=== PATIENT | female | born 1980 | race Caucasian/White ===

== ENCOUNTER 2022-09-05 09:37 | Emergency (ER) | payer MEDICAID ==
[~2022-09-05] VITALS: Ht 160 cm; Wt 66.7 kg
[2022-09-05 09:47] VITALS: BP 110/70
--- NOTE | 2022-09-05 09:58 | NUR ---
PT AMBULATED TO ER BED 8
[2022-09-05] MEDS ORDERED: MORPHINE SULFATE 4 MG/ML SYR IVP ONE (10:25)
[2022-09-05] MEDS ORDERED: NACL 0.9% 1,000 ML IV ONE (10:25)
[2022-09-05] MEDS ORDERED: ONDANSETRON 4 MG/2 ML VIAL IVP ONE (10:25)
--- NOTE | 2022-09-05 10:25 | NUR ---
Dr. Oviedo evaluating patient at bedside.
[2022-09-05 10:40] LABS: APPEARANCE,URINE CLEAR (CLEAR); BILIRUBIN,URINE NEGATIVE (NEGATIVE); BLOOD, URINE 1+ (NEGATIVE); COLOR,URINE YELLOW (YELLOW); LEUKOCYTE ESTERASE ,URINE NEGATIVE (NEGATIVE); NITRITE, URINE POSITIVE (NEGATIVE); PH,URINE 5.5 (5.0-9.0); UGLUCOSE NEGATIVE (NEGATIVE)
--- NOTE | 2022-09-05 10:50 | NUR ---
Ultrasound at bedside.
[2022-09-05 10:53] LABS: BASOPHILS # (AUTO) 0.1 K/uL (0.00-0.22); EOSINOPHILS # (AUTO) 0.2 K/uL (0-0.4); EOSINOPHILS % (AUTO) 2.5 % (0.0-4.0); HEMATOCRIT 40.5 % (36-48); HEMOGLOBIN 13.5 g/dL (12.0-16.0); LYMPHOCYTES # (AUTO) 2.6 K/uL (2.5-16.5); LYMPHOCYTES % (AUTO) 32.5 % (20.5-51.1); MEAN CORPUSCULAR HEMOGLOBIN 29 pg (27-31); MEAN CORPUSCULAR HGB CONC 33 g/dL (33-37); MEAN CORPUSCULAR VOLUME 88.2 fL (80-94); MONOCYTES # (AUTO) 0.8 K/uL (0.8-1.0); MONOCYTES % (AUTO) 9.7 % (1.7-9.3); NEUTROPHILS # (AUTO) 4.4 K/uL (1.8-7.7); NEUTROPHILS % (AUTO) 54.3 % (42.2-75.2); PLATELET COUNT (AUTO) 306 K/uL (140-450); RED BLOOD CELL COUNT(AUTO) 4.59 MIL/uL (4.20-5.40); RED CELL DISTRIBUTION WIDTH 13.2 % (11.6-13.7)
--- NOTE | 2022-09-05 11:00 | NUR ---
41 y/o female bib self with c/o left pelvic pain and LLQ abdominal pain x 3 days. Per patient she has not had a BM since 09/02/22. Patient was seen in [facility] ER on 09/03/22 and was given Tramadol and Zofran. Denies any fevers, chills or SOB. Denies any problems with urination. Medical History: Denies NKDA
[2022-09-05 11:12] LABS: ALBUMIN 3.3 g/dL (3.4-5.0); ANION GAP 9.6 (8-16); CARBON DIOXIDE 29.5 mmol/L (21-32); CREATININE 0.8 mg/dL (0.6-1.3); POTASSIUM 4.1 mmol/L (3.5-5.1); TOTAL BILIRUBIN 0.6 mg/dL (0.0-1.0)
[2022-09-05 11:34] LABS: WBC,URINE 0-5 /HPF (0-5)
[2022-09-05] MEDS ORDERED: SIME125T38 PO (13:16)
[2022-09-05] MEDS ORDERED: ONDA-188 PO (13:16)
[2022-09-05] MEDS ORDERED: SUCR1TAB35 PO (13:16)
[2022-09-05] MEDS ORDERED: IBUP-2213 PO (13:16)
--- NOTE | 2022-09-05 13:24 | NUR ---
Dr. Oviedo re-evaluating patient at bedside.
--- NOTE | 2022-09-05 13:40 | NUR ---
IV removed, catheter intact and site benign. Applied folded 4x4 gauze and tape to stop bleeding.
[2022-09-05 13:45] VITALS: BP 108/57
--- NOTE | 2022-09-05 13:45 | NUR ---
Patient discharged with v/s stable. Written and verbal after care instructions given. Patient alert, oriented and verbalized understanding of instructions. Ambulatory with steady gait. All questions addressed prior to discharge. ID band removed. Patient advised to follow up with PMD. Rx of Ibuprofen, Zofran, Mulanta and Carafate given. Opportunity to ask questions provided and answered. WORK NOTE HANDED TO PATIENT.
--- NOTE | 2022-09-05 14:28 | NUR ---
The patient's care was reviewed and supervised by SCAR RIVERA RN. Pt. ambulated with no difficulty. Denies pain now. Stable for D/C. States just feeling constipated.
== END 2022-09-05 13:45 | disposition home or self-care (01) ==
LOC: MED 09:37
DX: K59.00 Constipation, unspecified (principal); Z79.899 Other long term (current) drug therapy; Z79.1 Long term (current) use of non-steroidal anti-inflammatories (NSAID)
CPT/HCPCS: 36415; 74176; 76856; 80053; 81001; 81025; 83690; 85025; 96361; 96374; 96375; 99285; J2270; J2405; J7030; Q0092